=== PATIENT | male | born 1980 | race Caucasian/White ===

== ENCOUNTER 2021-10-02 16:33 | Observation (INO) | payer BC ==
[~2021-10-02] VITALS: Ht 188 cm; Wt 90.0 kg
[2021-10-02] VITALS (17 sets, daily range): BP systolic 96–123; BP diastolic 57–81
[2021-10-02] MEDS ORDERED: normal saline 1000ml 1,000 ML IV ONE (17:05)
[2021-10-02] MEDS ORDERED: LIDOcaine 1% W/epiNEPHrine 1:100,000 20ml vial ONE (17:28)
[2021-10-02] MEDS ORDERED: BUPIVAcaine/PF 2.5 mg/ml (0.25%) 30ml vial ONE (17:28)
[2021-10-02 17:33] LABS: BASOPHILS % (AUTO) 0.3 % (0-1); EOSINOPHILS # (AUTO) 0.2 X10'3 (0-0.9); EOSINOPHILS % (AUTO) 2.5 % (0-6); HEMATOCRIT 41.6 % (42.0-52.0); HEMOGLOBIN 14.2 g/dl (14.0-17.9); LYMPHOCYTES # (AUTO) 1.4 X10'3 (1.1-4.8); LYMPHOCYTES % (AUTO) 18.1 % (21-51); MEAN CORPUSCULAR HEMOGLOBIN 31.6 PG (27.0-31.0); MEAN CORPUSCULAR HGB CONC 34.2 g/dL (33.0-36.5); MEAN CORPUSCULAR VOLUME 92.6 FL (78-98); MONOCYTES # (AUTO) 0.7 X10'3 (0-0.9); MONOCYTES % (AUTO) 9.1 % (2-12); NEUTROPHILS # (AUTO) 5.3 X10'3 (1.8-7.7); PLATELET COUNT 236 X10'3 (140-440); RED BLOOD COUNT 4.49 X10'6 (4.70-6.10); RED CELL DISTRIBUTION WIDTH 12.9 % (11.5-14.5); WHITE BLOOD COUNT 7.5 X10'3 (4.5-11.0)
[2021-10-02 17:40] LABS: APTT 26 SECONDS (22-32)
[2021-10-02 17:42] LABS: ALANINE AMINOTRANSFERASE 14 U/L (12-78); ALBUMIN/GLOBULIN RATIO 1.1 (1.1-1.5); ALKALINE PHOSPHATASE 44 IU/L (46-116); ANION GAP 6 (8-16); ASPARTATE AMINO TRANSFERASE 14 U/L (10-37); BILIRUBIN,TOTAL 0.7 MG/DL (0.1-1.0); BLOOD UREA NITROGEN 11 MG/DL (7-18); BUN/CREATININE RATIO 8.2 (5.4-32.0); CALCIUM 9.2 MG/DL (8.5-10.1); CHLORIDE 104 MMOL/L (99-107); CREATININE 1.34 MG/DL (0.60-1.10); GLUCOSE 125 MG/DL (70-104); POTASSIUM 4.2 MMOL/L (3.5-5.1); SODIUM 140 MMOL/L (135-145); TOTAL CARBON DIOXIDE 30.3 MMOL/L (24-32); TOTAL PROTEIN 7.8 G/DL (6.4-8.2); eGFR 60 ML/MIN
[2021-10-02] MEDS ORDERED: sevoflurane 250ml liquid IH ONE (17:51)
[2021-10-02] MEDS ORDERED: dexamethasone sod phosphate 10mg/ml inj ONE (17:51)
[2021-10-02] MEDS ORDERED: fentaNYL/PF 50MCG/1 ML 2ML syringe ONE ×2 (17:54→19:23)
[2021-10-02] MEDS ORDERED: midazolam 1 mg/ML 2ml injection ONE (17:54)
[2021-10-02] MEDS ORDERED: propofol inj 20 ML IV ONE (17:54)
[2021-10-02] MEDS ORDERED: rocuronium 10mg/ml inj IV ONE (17:54)
[2021-10-02] MEDS ORDERED: morphine 4 MG/ML inj SYRINge IV PRN (18:25)
[2021-10-02] MEDS ORDERED: meperidine/PF 25mg/ml syringe IV PRN ×3 (18:25)
[2021-10-02] MEDS ORDERED: morphine 2 MG/ML inj. syringe IV PRN (18:25)
[2021-10-02] MEDS ORDERED: proCHLORperazine 10 MG/2 ml inj IV PRN (18:25)
[2021-10-02] MEDS ORDERED: ringers solution, lacted 1,000 ML IV SCH (18:25)
[2021-10-02] MEDS ORDERED: ondansetron/PF 4mg/2ml inj IV PRN (18:25)
[2021-10-02] MEDS ORDERED: gelatin sponge, absorbable (Gelfoam 100) sponge TP ONE (18:38)
[2021-10-02] MEDS ORDERED: Thrombin (Bovine) 5,000 unit vial TP ONE (18:38)
[2021-10-02] MEDS ORDERED: meperidine/PF 50mg/ml syringe ONE (19:25)
[2021-10-02] MEDS ORDERED: ondansetron/PF 4mg/2ml inj ONE (19:29)
[2021-10-02 20:12] LABS: ISTAT CREATININE 1.2 mg/dL (0.8-1.3); ISTAT HGB 12.6 g/dl (14.0-18.0); ISTAT IONIZED CALCIUM 1.22 mmol/L (1.03-1.32); ISTAT K 4.2 mmol/L (3.5-5.1); POC BUN/CREATININE RATIO 10.8 (5.4-32.0)
[2021-10-02] MEDS ORDERED: naloxone 0.4 mg/ml inj IV PRN (20:25)
[2021-10-02] MEDS ORDERED: acetaminophen 325mg tablet PO PRN (20:25)
[2021-10-02] MEDS: potassium CL 20mEq in D5-1/2NS 1,000 ML IV SCH (23:01)
[2021-10-03 00:10] VITALS: BP 104/70
[2021-10-03] MEDS: metroNIDAZOLE-Flagyl 500mg/NS 100 ML IV SCH ×2 (00:12→09:33)
[2021-10-03 01:10] VITALS: BP 108/65
[2021-10-03 02:00] VITALS: BP 95/60
[2021-10-03] MEDS ORDERED: ibuprofen tablet 400 MG TABLET PO SCH (02:00)
[2021-10-03 06:00] VITALS: BP 93/54
[2021-10-03] MEDS: potassium CL 20mEq in D5-1/2NS 1,000 ML IV SCH (06:25)
[2021-10-03 07:14] LABS: BASOPHILS % (AUTO) 0.1 % (0-1); EOSINOPHILS % (AUTO) 0 % (0-6); HEMATOCRIT 31.1 % (42.0-52.0); HEMOGLOBIN 10.8 g/dl (14.0-17.9); LYMPHOCYTES # (AUTO) 0.8 X10'3 (1.1-4.8); LYMPHOCYTES % (AUTO) 11.4 % (21-51); MEAN CORPUSCULAR HEMOGLOBIN 31.6 PG (27.0-31.0); MEAN CORPUSCULAR HGB CONC 34.6 g/dL (33.0-36.5); MEAN CORPUSCULAR VOLUME 91.3 FL (78-98); MEAN PLATELET VOLUME 8.4 FL (7.4-10.4); MONOCYTES # (AUTO) 0.3 X10'3 (0-0.9); MONOCYTES % (AUTO) 5.1 % (2-12); NEUTROPHILS # (AUTO) 5.6 X10'3 (1.8-7.7); NEUTROPHILS % (AUTO) 83.4 % (42-75); PLATELET COUNT 201 X10'3 (140-440); RED BLOOD COUNT 3.41 X10'6 (4.70-6.10); RED CELL DISTRIBUTION WIDTH 12.9 % (11.5-14.5); WHITE BLOOD COUNT 6.7 X10'3 (4.5-11.0)
[2021-10-03 07:38] LABS: ALBUMIN 2.9 G/DL (3.4-5.0); ANION GAP 6 (8-16); BLOOD UREA NITROGEN 10 MG/DL (7-18); BUN/CREATININE RATIO 9.6 (5.4-32.0); CALCIUM 7.9 MG/DL (8.5-10.1); CHLORIDE 107 MMOL/L (99-107); CREATININE 1.04 MG/DL (0.60-1.10); GLUCOSE 156 MG/DL (70-104); POTASSIUM 4.6 MMOL/L (3.5-5.1); SODIUM 138 MMOL/L (135-145); TOTAL CARBON DIOXIDE 24.8 MMOL/L (24-32); eGFR 80 ML/MIN
[2021-10-03] MEDS ORDERED: METR-159 PO (08:41)
[2021-10-03] MEDS ORDERED: ibuprofen 200mg tablet PO SCH (09:31)
[2021-10-03 10:00] VITALS: BP 96/71
== END 2021-10-03 12:41 | disposition home or self-care (01) ==
LOC: ER 16:35 → ORTHO 4S 20:28
PROVIDERS: ADMIT Colon & Rectal Surgery; ATTEND Family Medicine
DX: K91.840 Postprocedural hemorrhage of a digestive system organ or structure following a digestive system procedure (principal); Z20.822 Contact with and (suspected) exposure to COVID-19; K62.5 Hemorrhage of anus and rectum; K64.8 Other hemorrhoids; R55 Syncope and collapse; C44.91 Basal cell carcinoma of skin, unspecified; Z79.899 Other long term (current) drug therapy; Z85.828 Personal history of other malignant neoplasm of skin
CPT/HCPCS: 36415; 80047; 80048; 80053; 85025; 85610; 85730; 86885; 86900; 86901; 87081; 96361; 96365; 96366; 96375; 99284; A4215; A4402; A4618; A6253; A6449; A7000; G0378; J1100; J2175; J2250; J2405; J2704; J3010; J3480; J3490; J7030